=== PATIENT | male | born 1970 | race Caucasian/White ===

== ENCOUNTER 2022-05-08 08:01 | Outpatient (REF) | payer OTHER, SELFPAY ==
[2022-05-08 11:29] LABS: MANUAL DIFF FLAG NO
[2022-05-08 11:43] LABS: Basophils Absolute Auto 0.1 X10*3/uL (0.0-0.2); Basophils Percent Auto 0.9 % (0-2); Eosinophils Absolute Auto 0.4 X10*3/uL (0.0-0.4); Eosinophils Percent Auto 4.6 % (0-4); Hematocrit 43.6 % (42.0-52.0); Hemoglobin 15.1 g/dl (14.0-18.0); Imm Gran Abs Auto 0.03 X10*3/uL (0.00-0.03); Imm Gran Pct Auto 0.4 % (0.0-0.4); Lymphocytes Absolute Auto 2.1 X10*3/uL (1.2-4.9); Lymphocytes Percent Auto 26.5 % (20-40); Mean Corpuscular HGB Conc 34.6 g/dl (31.0-36.0); Mean Corpuscular Hemoglobin 30.1 pg (27.0-33.0); Mean Corpuscular Volume 86.9 fL (80.0-98.0); Mean Platelet Volume 10.6 fL (9.4-12.4); Monocytes Absolute Auto 0.5 X10*3/uL (0.1-1.2); Monocytes Percent Auto 5.8 % (2-11); Neutrophils Absolute Auto 4.9 x10*3/uL (2.0-8.3); Neutrophils Percent Auto 61.8 % (45-73); Platelet Count 335 X10*3/uL (160-400); Red Blood Count 5.02 X10*6/uL (4.60-5.80); White Blood Count 7.9 X10*3/uL (4.8-10.8)
[2022-05-08 12:04] LABS: Alanine Aminotransferase 20 U/L (0-40); Albumin Level 4.3 g/dL (3.5-5.0); Alkaline Phosphatase 75 U/L (39-117); Anion Gap 15 (12-20); Aspartate Amino Transferase 16 U/L (5-37); Bilirubin Total 0.8 mg/dL (0.0-1.0); Blood Urea Nitrogen 12 mg/dL (9-16); Calcium 9.2 mg/dL (8.4-10.2); Carbon Dioxide 26 mmol/L (22-29); Chloride 104 mmol/L (96-108); Cholesterol 181 mg/dL; Estimated Glomerular Filt Rate > 60; Glucose Fasting 97 mg/dL (60-99); HDL Cholesterol 44 mg/dL; LDL Cholesterol Calculated 120 mg/dl; Potassium 4.1 mmol/L (3.3-5.1); Sodium 141 mmol/L (135-145); Total Protein 6.6 g/dL (6.5-8.0); Triglycerides 89 mg/dL
[2022-05-08 12:28] LABS: PSA,Total (Free>4and<10) 0.22 ng/mL (0.00-4.00)
[2022-05-08 12:41] LABS: Appearance Urine Clear; Color Urine Yellow; Glucose Urine UA Negative (Negative); Leukocyte Esterase Urine Negative (Negative); Nitrite Urine Negative (Negative); PH 5.5 (5.0-9.0); Specific Gravity - Urine 1.025 (1.005-1.025); UMIC TRIGGER UA YES; Urine Blood Moderate (2+) (Negative); Urine Ketones Negative (Negative); Urine Protein Negative (Neg-Trace)
[2022-05-08 13:03] LABS: RBC Urine 0-2 /HPF (0-2); Squamous Epithelial Cell Urine 0-2 /HPF (0-2); WBC Urine 0-5 /HPF (0-5)
[2022-05-08 13:04] LABS: Bacteria Urine None Seen (None Seen); Hyaline Casts Urine 0-2 /LPF (0-2)
== END 2022-05-08 08:02 | disposition home or self-care (01) ==
LOC: HO.HMGCLDS 08:01
PROVIDERS: PCP Internal Medicine; Visit Provider Internal Medicine
DX: Z00.00 Encounter for general adult medical examination without abnormal findings (principal); I10 Essential (primary) hypertension; G47.30 Sleep apnea, unspecified; Z98.890 Other specified postprocedural states; Z12.5 Encounter for screening for malignant neoplasm of prostate
CPT/HCPCS: 36415; 80053; 80061; 81001; 84153; 85025

== ENCOUNTER 2023-09-19 13:54 | Outpatient (AMB) | payer OTHER, SELFPAY ==
--- NOTE | 2023-09-19 13:59 | MHC.PC.OV ---
Vital Signs 09/19/23 14:02 Height 5 ft 4 in Weight 186 lb BMI 31.9 BP 126/82 Blood Pressure Location Lt brachial Position Sitting Pulse 68 Pulse Source Pulse Oximeter Pulse Oximetry (%) 98 Oxygen Delivery Method Room Air Intake Visit Reasons: Med review Intake Note: Pt is here today for a follow up visit. Allergies iodine Allergy (Unknown, Verified 09/19/23 14:03) anaphylaxis Iodine and Iodide Containing Produc [IODINE AND IODIDE CONTAINING PRODUC] Allergy (Unknown, Unverified 09/19/23 14:03) ANAPHYLAXIS omeprazole [OMEPRAZOLE] Allergy (Unknown, Unverified 09/19/23 14:03) ITCHING Iodine Tincture Allergy (Unknown, Uncoded 09/19/23 14:03) Anaphylaxis Medication List - Last Reconciled 09/19/23 by Belinda Guidry MD esomeprazole magnesium (Nexium) 20 mg PO DAILY olmesartan 5 mg PO DAILY Tobacco use date assessed: 09/19/23 Dental Screening Dental Screen Date: 09/19/23 Did you have a dental visit in the last 12 months?: Yes Did you have a dental problem in the last 6 months where you did not have access to dental care?: No Was dental information given to patient?: Patient has dentist HPI Med review HPI Details Pt presents for f/u HTN. He has not been compliant taking olmesartan every day. Patient reports elevated blood pressure at home on occasions. He denies chest pain shortness on breath or palpitations. 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 1. Little interest or pleasure in doing things: not at all 2. Feeling down, depressed, or hopeless: not at all 3. Trouble falling or staying asleep, or sleeping too much: several days 4. Feeling tired or having little energy: not at all 5. Poor appetite or overeating: not at all 6. Feeling bad about yourself - or that you are a failure or have let yourself or your family down: not at all 7. Trouble concentrating on things, such as reading the newspaper or watching television: not at all 8. Moving or speaking so slowly that other people could have noticed. Or the opposite - being so fidgety or restless that you have been moving around a lot more than usual: not at all 9. Thoughts that you would be better off or of hurting yourself in some way: not at all Total score: 1 Depression Screening Interpretation: Negative Depression Screening Done: Yes Source: Developed by Drs. Sukh Pacheco, Kenna Garcia, Pastor Marshall and colleagues, with an educational lance from [employer]. Thrive Questionnaire Date Thrive assessed: 09/19/23 I am a: Patient What is your living situation today?: I have a steady place to live Within the past 12 months, did the food you bought not last and you didn't have the money to get more?: Never true Within the past 12 months, did you worry whether your food would run out before you got money to buy more?: Never true Do you have trouble paying for medicines?: No Do you have trouble getting transportation to medical appointments?: No Do you have trouble paying your heating and electricity bill?: No Do you have trouble taking care of your child, family member or friend?: No Do you have trouble with day-to-day activities such as bathing, preparing meals, shopping, managing finances, etc.?: No Are you currently unemployed and looking for a job?: No Are you interested in more education?: No Please select the resources that you would like help with: None Currently or been in a relationship where the following occur: no concerns reported THRIVE Score: 0 AUDIT C Alcohol Use Questionnaire (AUDIT-C) 1. How often do you have a drink containing alcohol?: Never 3. How often do you have six or more drinks on one occasion?: Never Total Score: 0 MIKHAIL-7 AMB Questionnaire MIKHAIL-7 Date MIKHAIL - 7 assessed: 09/19/23 Feeling nervous, anxious, or on edge: 0 = Not at all Not being able to stop or control worryin = Not at all Worrying too much about different things: 0 = Not at all Trouble relaxin = Not at all Being so restless that it is hard to sit still: 0 = Not at all Becoming easily annoyed or irritable: 0 = Not at all Feeling afraid as if something awful might happen: 0 = Not at all Total MIKHAIL-7 score (0-4 normal; 5-9 mild; 10-14 moderate; 15-21 severe): 0 Source: Developed by Drs. Sukh Pacheco, Kenna Garcia, Pastor Marshall and colleagues, with an educational lance from [employer]. Review of Systems Const All systems reviewed & are unremarkable except as noted in HPI and below Reports no additional complaints Eyes Reports no additional complaints ENT Reports no additional complaints Card Reports no additional complaints GI Reports no additional complaints Reports no additional complaints Physical exam (Primary Care) Vital Signs: Last Vital Signs Pulse 68 09/19/23 14:02 BP 126/82 09/19/23 14:02 Pulse Ox 98 09/19/23 14:02 Oxygen Delivery Method Room Air 09/19/23 14:02 BMI result Body Mass Index 31.9 Tobacco/Smoking Status: Tobacco use Status Tobacco use date assessed 09/19/23 09/19/23 14:06 Patient Tobacco Use Status Never used Tobacco 09/19/23 14:06 e-Cigarette/Vaping Use Never Used 09/19/23 14:00 PHQ-9: PHQ-9 Score PHQ-9: Total score 1 09/19/23 14:06 Depression Screening Interpretation: Negative Thrive Assessment: Date of Thrive Assessment Date Thrive assessed 09/19/23 09/19/23 14:06 Currently or been in a relationship where the following occur: no concerns reported Const General: no acute distress HENMT Throat: Yes posterior oropharynx normal Neck Neck: Yes no lymphadenopathy and Yes supple Resp Effort & Inspection: normal respiratory effort Auscultation: clear to auscultation bilaterally Cardio Rhythm: regular rhythm Heart sounds: S1 normal heart sound present and S2 normal heart sound present Assessment and Plan Assessment & Plan (1) HTN (hypertension): Code(s): I10 - Essential (primary) hypertension Plan: Patient will restart olmesartan, low-sodium diet regular physical activity weight loss discussed with the patient. he will return for fasting blood work. Follow-up in 6 weeks (2) Annual physical exam: Code(s): Z00.00 - Encounter for general adult medical examination without abnormal findings Plan: Refer for screening colonoscopy Orders: Orders Complete Blood Count Auto Diff Today I10 - Essential (primary) hypertension, Z00.00 - Encounter for general adult medical examination without abnormal findings TSH reflex Free T4 Today I10 - Essential (primary) hypertension, Z00.00 - Encounter for general adult medical examination without abnormal findings UA w Microscopic Today I10 - Essential (primary) hypertension, Z00.00 - Encounter for general adult medical examination without abnormal findings Comprehensive [place]. Panel Fast Today I10 - Essential (primary) hypertension, Z00.00 - Encounter for general adult medical examination without abnormal findings Lipid Panel Today I10 - Essential (primary) hypertension, Z00.00 - Encounter for general adult medical examination without abnormal findings PSA,Total (Free>4and<10) Today I10 - Essential (primary) hypertension, Z00.00 - Encounter for general adult medical examination without abnormal findings Referrals Gastroenterology Referral Z00.00 - Encounter for general adult medical examination without abnormal findings Medications: Refilled olmesartan 5 mg PO DAILY 90 tabs 3RF Coding Level of Care Code Est Pt Level 3 (25477) Diagnoses HTN (hypertension) I10 Annual physical exam Z00.00
[2023-09-19 14:02] VITALS: BP 126/82; PULSE 68; O2SAT 98; BMI 31.9
== END 2023-09-19 14:34 | disposition home or self-care (01) ==
PROVIDERS: PCP Internal Medicine; Visit Provider Internal Medicine
DX: I10 Essential (primary) hypertension (principal); Z00.00 Encounter for general adult medical examination without abnormal findings
CPT/HCPCS: 99213

== ENCOUNTER 2023-11-20 07:17 | Outpatient (REF) | payer OTHER, SELFPAY ==
[2023-11-20 10:22] LABS: MANUAL DIFF FLAG NO
[2023-11-20 10:33] LABS: Appearance Urine Clear; Color Urine Yellow; Glucose Urine UA Negative (Negative); Leukocyte Esterase Urine Negative (Negative); Nitrite Urine Negative (Negative); PH 5.5 (5.0-9.0); UMIC TRIGGER UA YES; Urine Blood Small (1+) (Negative); Urine Ketones Negative (Negative); Urine Protein Negative (Neg-Trace)
[2023-11-20 10:34] LABS: Basophils Absolute Auto 0.1 X10*3/uL (0.0-0.2); Basophils Percent Auto 0.9 % (0-2); Eosinophils Absolute Auto 0.4 X10*3/uL (0.0-0.4); Eosinophils Percent Auto 4.8 % (0-4); Hemoglobin 15.2 g/dl (14.0-18.0); Imm Gran Abs Auto 0.02 X10*3/uL (0.00-0.03); Imm Gran Pct Auto 0.2 % (0.0-0.4); Lymphocytes Absolute Auto 2.5 X10*3/uL (1.2-4.9); Lymphocytes Percent Auto 29.4 % (20-40); Mean Corpuscular HGB Conc 34.5 g/dl (31.0-36.0); Mean Corpuscular Hemoglobin 30.2 pg (27.0-33.0); Mean Corpuscular Volume 87.5 fL (80.0-98.0); Mean Platelet Volume 10.5 fL (9.4-12.4); Monocytes Absolute Auto 0.6 X10*3/uL (0.1-1.2); Neutrophils Absolute Auto 4.9 x10*3/uL (2.0-8.3); Neutrophils Percent Auto 57.7 % (45-73); Platelet Count 318 X10*3/uL (160-400); Red Blood Count 5.03 X10*6/uL (4.60-5.80); Red Cell Distribution Width 12.8 % (11.0-16.0); White Blood Count 8.5 X10*3/uL (4.8-10.8)
[2023-11-20 10:57] LABS: Bacteria Urine None Seen (None Seen); Hyaline Casts Urine 0-2 /LPF (0-2); RBC Urine 0-2 /HPF (0-2); Squamous Epithelial Cell Urine 0-2 /HPF (0-2); WBC Urine 0-5 /HPF (0-5)
[2023-11-20 11:00] LABS: Alanine Aminotransferase 36 U/L (0-40); Albumin Level 4.1 g/dL (3.5-5.0); Alkaline Phosphatase 77 U/L (39-117); Anion Gap 11 (12-20); Aspartate Amino Transferase 22 U/L (5-37); Bilirubin Total 0.7 mg/dL (0.0-1.0); Blood Urea Nitrogen 12 mg/dL (9-16); Calcium 8.9 mg/dL (8.4-10.2); Carbon Dioxide 27 mmol/L (22-29); Chloride 107 mmol/L (96-108); Cholesterol 187 mg/dL (<200); Estimated Glomerular Filt Rate > 60; Glucose Fasting 99 mg/dL (60-99); HDL Cholesterol 41 mg/dL (>40); LDL Cholesterol Calculated 125 mg/dL (<100); Sodium 141 mmol/L (135-145); Total Protein 6.5 g/dL (6.5-8.0); Triglycerides 108 mg/dL (<150)
[2023-11-20 11:02] LABS: PSA,Total (Free>4and<10) 0.27 ng/mL (0.00-4.00)
[2023-11-20 11:16] LABS: TSH reflex Free T4 1.37 uIU/mL (0.32-4.0)
== END 2023-11-20 07:18 | disposition home or self-care (01) ==
LOC: HO.HMGCLDS 07:17
PROVIDERS: PCP Internal Medicine; Visit Provider Internal Medicine
DX: Z00.00 Encounter for general adult medical examination without abnormal findings (principal); Z12.5 Encounter for screening for malignant neoplasm of prostate; I10 Essential (primary) hypertension
CPT/HCPCS: 36415; 80053; 80061; 81001; 84153; 84443; 85025

== ENCOUNTER 2023-11-22 10:57 | Outpatient (AMB) | payer OTHER, SELFPAY ==
--- NOTE | 2023-11-22 11:02 | MHC.PC.OV ---
Vital Signs 11/22/23 11:03 Height 5 ft 4 in Weight 187 lb BMI 32.1 BP 139/88 Blood Pressure Location Rt brachial Position Sitting Pulse 68 Pulse Source Pulse Oximeter Pulse Oximetry (%) 98 Oxygen Delivery Method Room Air Intake Visit Reasons: 6 week follow up-R/S per patient request Intake Note: Pt is here today for 6 weeks follow up visit. Allergies iodine Allergy (Unknown, Verified 11/22/23 11:04) anaphylaxis Iodine and Iodide Containing Produc [IODINE AND IODIDE CONTAINING PRODUC] Allergy (Unknown, Unverified 11/22/23 11:04) ANAPHYLAXIS omeprazole [OMEPRAZOLE] Allergy (Unknown, Verified 11/22/23 11:04) ITCHING Iodine Tincture Allergy (Unknown, Uncoded 11/22/23 11:04) Anaphylaxis Medication List - Last Reconciled 11/22/23 by Belinda Guidry MD esomeprazole magnesium (Nexium) 20 mg PO DAILY olmesartan 5 mg PO DAILY Tobacco use date assessed: 11/22/23 Dental Screening Dental Screen Date: 09/19/23 HPI 6 week follow up-R/S per patient request HPI Details Pt presents for f/u HTN. 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 Sukh Pacheco, Kenna Garcia, Pastor Marshall and colleagues, with an educational lance from [employer] Review of Systems Const All systems reviewed & are unremarkable except as noted in HPI and below ENT Reports no additional complaints Card Reports no additional complaints Resp Reports no additional complaints Reports no additional complaints Physical exam (Primary Care) Vital Signs: Last Vital Signs Pulse 68 11/22/23 11:03 Pulse Ox 98 11/22/23 11:03 Oxygen Delivery Method Room Air 11/22/23 11:03 BMI result Body Mass Index 32.1 Tobacco/Smoking Status: Tobacco use Status Tobacco use date assessed 11/22/23 11/22/23 11:07 Patient Tobacco Use Status Never used Tobacco 11/22/23 11:07 e-Cigarette/Vaping Use Never Used 11/22/23 11:07 Thrive Assessment: Date of Thrive Assessment Date Thrive assessed 09/19/23 11/22/23 11:07 Const General: no acute distress HENMT Head: Yes normal to inspection Ears: hearing grossly normal bilaterally Face and sinus: Yes normal facial exam Neck Neck: Yes supple Resp Effort & Inspection: normal respiratory effort Auscultation: clear to auscultation bilaterally Cardio Rhythm: regular rhythm Heart sounds: S1 normal heart sound present and S2 normal heart sound present GI Inspection: Yes normal to inspection Palpation (GI): Soft to palpation Assessment and Plan Assessment & Plan (1) HTN (hypertension): Code(s): I10 - Essential (primary) hypertension Plan: Increase olmesartan to 20 mg a day check BMP in 1 week continue regular physical activity low-sodium diet follow-up in 6 weeks (2) Sleep apnea: Comment: on Cpap Code(s): G47.30 - Sleep apnea, unspecified Plan: Compliance with the CPAP discussed with the patient Orders: Orders Basic Metabolic Panel 1 Week I10 - Essential (primary) hypertension Medications: New olmesartan 20 mg PO DAILY 90 tabs 0RF Discontinued olmesartan Discontinued Reason: Doctor's Order 5 mg PO DAILY 90 tabs 3RF Coding Level of Care Code Est Pt Level 3 (60812) Diagnoses HTN (hypertension) I10 Sleep apnea G47.30
[2023-11-22 11:03] VITALS: BP 139/88; PULSE 68; O2SAT 98; BMI 32.1
== END 2023-11-22 11:27 | disposition home or self-care (01) ==
PROVIDERS: PCP Internal Medicine; Visit Provider Internal Medicine
DX: I10 Essential (primary) hypertension (principal); G47.30 Sleep apnea, unspecified
CPT/HCPCS: 99213

== ENCOUNTER 2024-01-04 10:48 | Outpatient (AMB) | payer OTHER, SELFPAY ==
--- NOTE | 2024-01-04 10:53 | MHC.PC.OV ---
Vital Signs 01/04/24 10:54 Height 5 ft 4 in Weight 185 lb BMI 31.8 BP 139/88 Blood Pressure Location Rt brachial Position Sitting Pulse 77 Pulse Source Pulse Oximeter Pulse Oximetry (%) 95 Oxygen Delivery Method Room Air Intake Visit Reasons: 6 week follow up/med change Intake Note: Pt is here today for a follow up visit on med change. Allergies iodine Allergy (Unknown, Verified 01/04/24 11:02) anaphylaxis Iodine and Iodide Containing Produc [IODINE AND IODIDE CONTAINING PRODUC] Allergy (Unknown, Unverified 01/04/24 11:02) ANAPHYLAXIS omeprazole [OMEPRAZOLE] Allergy (Unknown, Verified 01/04/24 11:02) ITCHING Iodine Tincture Allergy (Unknown, Uncoded 01/04/24 11:02) Anaphylaxis Medication List - Last Reconciled 01/04/24 by Belinda Guidry MD amlodipine-olmesartan 5-20 mg 1 tab PO DAILY esomeprazole magnesium (Nexium) 20 mg PO DAILY Tobacco use date assessed: 01/04/24 Dental Screening Dental Screen Date: 09/19/23 HPI 6 week follow up/med change HPI Details Patient presents for the follow-up on hypertension. He has been taking olmesartan 20 mg a day but reports blood pressure readings at home in 140/90 range. Patient denies chest pain or shortness of breath. 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 Sukh Pacheco, Kenna Garcia, Pastor Marshall and colleagues, with an educational lance from [employer]. Review of Systems Const All systems reviewed & are unremarkable except as noted in HPI and below Eyes Reports no additional complaints Card Reports no additional complaints Resp Reports no additional complaints GI Reports no additional complaints Physical exam (Primary Care) Vital Signs: Last Vital Signs Pulse 77 01/04/24 10:54 Pulse Ox 95 01/04/24 10:54 Oxygen Delivery Method Room Air 01/04/24 10:54 BMI result Body Mass Index 31.8 Tobacco/Smoking Status: Tobacco use Status Tobacco use date assessed 01/04/24 01/04/24 11:05 Patient Tobacco Use Status Never used Tobacco 01/04/24 10:54 e-Cigarette/Vaping Use Never Used 01/04/24 10:54 Thrive Assessment: Date of Thrive Assessment Date Thrive assessed 09/19/23 01/04/24 10:54 Const General: no acute distress HENMT Face and sinus: Yes normal facial exam Eyes General: appearance normal, both eyes and all related structures Resp Effort & Inspection: normal respiratory effort Auscultation: clear to auscultation bilaterally Cardio Rhythm: regular rhythm Heart sounds: S1 normal heart sound present and S2 normal heart sound present Assessment and Plan Assessment & Plan (1) HTN (hypertension): Code(s): I10 - Essential (primary) hypertension Plan: Change olmesartan to amlodipine with olmesartan 5/20, low-sodium diet regular physical activity discussed with the patient follow-up in 1 month Medications: New amlodipine-olmesartan 5-20 mg 1 tab PO DAILY 30 tabs 2RF Coding Level of Care Code Est Pt Level 3 (49349) Diagnoses HTN (hypertension) I10
[2024-01-04 10:54] VITALS: BP 139/88; PULSE 77; O2SAT 95; BMI 31.8
== END 2024-01-04 11:51 | disposition home or self-care (01) ==
PROVIDERS: PCP Internal Medicine; Visit Provider Internal Medicine
DX: I10 Essential (primary) hypertension (principal)
CPT/HCPCS: 99213

== ENCOUNTER 2024-02-28 10:02 | Outpatient (AMB) | payer OTHER, SELFPAY ==
--- NOTE | 2024-02-28 10:07 | A.OFFPC_ITS ---
Vital Signs 02/28/24 10:20 Height 5 ft 4 in Weight 183 lb BMI 31.4 BP 130/86 Blood Pressure Location Lt brachial Position Sitting Pulse 78 Pulse Source Pulse Oximeter Pulse Oximetry (%) 95 Oxygen Delivery Method Room Air Intake Visit Reasons: 1-2 month follow up Allergies iodine Allergy (Unknown, Verified 02/28/24 10:21) anaphylaxis Iodine and Iodide Containing Produc [IODINE AND IODIDE CONTAINING PRODUC] Allergy (Unknown, Unverified 02/28/24 10:21) ANAPHYLAXIS omeprazole [OMEPRAZOLE] Allergy (Unknown, Verified 02/28/24 10:21) ITCHING Iodine Tincture Allergy (Unknown, Uncoded 02/28/24 10:21) Anaphylaxis Medication List - Last Reconciled 02/28/24 by Belinda Guidry MD amlodipine-olmesartan 5-20 mg 1 tab PO DAILY esomeprazole magnesium (Nexium) 20 mg PO DAILY Tobacco use date assessed: 01/04/24 Dental Screening Dental Screen Date: 09/19/23 HPI 1-2 month follow up HPI Details Patient presents for the follow-up on hypertension better controlled on current medications. 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 1. Little interest or pleasure in doing things: not at all 2. Feeling down, depressed, or hopeless: not at all 3. Trouble falling or staying asleep, or sleeping too much: not at all 4. Feeling tired or having little energy: not at all 5. Poor appetite or overeating: not at all 6. Feeling bad about yourself - or that you are a failure or have let yourself or your family down: not at all 7. Trouble concentrating on things, such as reading the newspaper or watching television: not at all 8. Moving or speaking so slowly that other people could have noticed. Or the opposite - being so fidgety or restless that you have been moving around a lot more than usual: not at all 9. Thoughts that you would be better off or of hurting yourself in some way: not at all Total score: 0 Depression Screening Interpretation: Negative Depression Screening Done: Yes 75332 - PHQ-9 Billing: Yes Source: Developed by Drs. Sukh Pacheco, Kenna Garcia, Pastor Marshall and colleagues, with an educational lance from [employer]. Thrive Questionnaire Date Thrive assessed: 09/19/23 I am a: Patient What is your living situation today?: I have a steady place to live Within the past 12 months, did the food you bought not last and you didn't have the money to get more?: Never true Within the past 12 months, did you worry whether your food would run out before you got money to buy more?: Never true Do you have trouble paying for medicines?: No Do you have trouble getting transportation to medical appointments?: No Do you have trouble paying your heating and electricity bill?: No Do you have trouble taking care of your child, family member or friend?: No Do you have trouble with day-to-day activities such as bathing, preparing meals, shopping, managing finances, etc.?: No Are you currently unemployed and looking for a job?: No Are you interested in more education?: No Please select the resources that you would like help with: None Currently or been in a relationship where the following occur: No concerns reported THRIVE Score: 0 AUDIT C Alcohol Use Questionnaire (AUDIT-C) 1. How often do you have a drink containing alcohol?: Monthly or less 2. How many drinks containing alcohol do you have on a typical day when you are drinking?: 3 or 4 3. How often do you have six or more drinks on one occasion?: Never Total Score: 2 MIKHAIL-7 AMB Questionnaire MIKHAIL-7 Date MIKHAIL - 7 assessed: 02/28/24 Feeling nervous, anxious, or on edge: 0 = Not at all Not being able to stop or control worryin = Not at all Worrying too much about different things: 0 = Not at all Trouble relaxin = Not at all Being so restless that it is hard to sit still: 0 = Not at all Becoming easily annoyed or irritable: 0 = Not at all Feeling afraid as if something awful might happen: 0 = Not at all Total MIKHAIL-7 score (0-4 normal; 5-9 mild; 10-14 moderate; 15-21 severe): 0 Source: Developed by Drs. Sukh Pacheco, Kenna Garcia, Pastor Marshall and colleagues, with an educational lance from [employer]. Review of Systems Const All systems reviewed & are unremarkable except as noted in HPI and below Card Reports no additional complaints Resp Reports no additional complaints GI Reports no additional complaints Reports no additional complaints Physical exam (Primary Care) Vital Signs: Last Vital Signs Pulse 78 02/28/24 10:20 BP 130/86 02/28/24 10:20 Pulse Ox 95 02/28/24 10:20 Oxygen Delivery Method Room Air 02/28/24 10:20 BMI result Body Mass Index 31.4 Tobacco/Smoking Status: Tobacco use Status Tobacco use date assessed 01/04/24 02/28/24 10:08 Patient Tobacco Use Status Never used Tobacco 02/28/24 10:08 e-Cigarette/Vaping Use Never Used 02/28/24 10:08 PHQ-9: PHQ-9 Score PHQ-9: Total score 0 02/28/24 10:24 Depression Screening Interpretation: Negative Thrive Assessment: Date of Thrive Assessment Date Thrive assessed 09/19/23 02/28/24 10:08 Currently or been in a relationship where the following occur: No concerns reported Const General: no acute distress HENMT Face and sinus: Yes normal facial exam Neck Neck: Yes supple Resp Effort & Inspection: normal respiratory effort Auscultation: clear to auscultation bilaterally Cardio Rhythm: regular rhythm Heart sounds: S1 normal heart sound present and S2 normal heart sound present GI Inspection: Yes normal to inspection Assessment and Plan Assessment & Plan (1) HTN (hypertension): Code(s): I10 - Essential (primary) hypertension Plan: Continue current medications follow-up in 2 months Orders: Orders Comprehensive [place]. Panel Fast 2 Months I10 - Essential (primary) hypertension Medications: Refilled amlodipine-olmesartan 5-20 mg 1 tab PO DAILY 90 tabs 2RF Coding Level of Care Code Est Pt Level 3 (36403) Diagnoses HTN (hypertension) I10
[2024-02-28 10:20] VITALS: BP 130/86; PULSE 78; O2SAT 95; BMI 31.4
== END 2024-02-28 10:49 | disposition home or self-care (01) ==
PROVIDERS: PCP Internal Medicine; Visit Provider Internal Medicine
DX: I10 Essential (primary) hypertension (principal)
CPT/HCPCS: 99213

== ENCOUNTER 2024-05-12 11:15 | Outpatient (AMB) | payer OTHER, SELFPAY ==
--- NOTE | 2024-05-12 11:17 | A.OFFPC_ITS ---
Vital Signs 05/12/24 11:18 Height 5 ft 4 in Weight 180 lb BMI 30.9 BP 124/78 Blood Pressure Location Lt brachial Position Sitting Pulse 70 Pulse Source Pulse Oximeter Pulse Oximetry (%) 98 Oxygen Delivery Method Room Air Intake Visit Reasons: PE Intake Note: Pt is here today for PE. Allergies iodine Allergy (Unknown, Verified 05/12/24 11:19) anaphylaxis Iodine and Iodide Containing Produc [IODINE AND IODIDE CONTAINING PRODUC] Allergy (Unknown, Unverified 05/12/24 11:19) ANAPHYLAXIS omeprazole [OMEPRAZOLE] Allergy (Unknown, Verified 05/12/24 11:19) ITCHING Iodine Tincture Allergy (Unknown, Uncoded 05/12/24 11:19) Anaphylaxis Medication List - Last Reconciled 05/12/24 by Belinda Guidry MD amlodipine-olmesartan 5-20 mg 1 tab PO DAILY esomeprazole magnesium (Nexium) 20 mg PO DAILY Tobacco use date assessed: 05/12/24 Dental Screening Dental Screen Date: 09/19/23 HPI PE HPI Details Patient presents for PE PFSH Surgical History History of knee surgery Family History Father Kidney problem Mother Dissection, aorta Hypertension Maternal Grandmother Stroke 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:: , 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 Housing: House Patient Tobacco Use Status: Never used Tobacco e-Cigarette/Vaping Use: Never Used service: Yes Current occupational status: employed Cognitive needs: No Hearing needs: No Vision needs: No Questionnaire Thrive Questionnaire Date Thrive assessed: 02/28/24 I am a: Patient What is your living situation today?: I have a steady place to live Within the past 12 months, did the food you bought not last and you didn't have the money to get more?: Never true Within the past 12 months, did you worry whether your food would run out before you got money to buy more?: Never true Do you have trouble paying for medicines?: No Do you have trouble getting transportation to medical appointments?: No Do you have trouble paying your heating and electricity bill?: No Do you have trouble taking care of your child, family member or friend?: No Do you have trouble with day-to-day activities such as bathing, preparing meals, shopping, managing finances, etc.?: No Are you currently unemployed and looking for a job?: No Are you interested in more education?: No Please select the resources that you would like help with: None Currently or been in a relationship where the following occur: No concerns reported THRIVE Score: 0 MIKHAIL-7 AMB Questionnaire MIKHAIL-7 Date MIKHAIL - 7 assessed: 02/28/24 Source: Developed by Drs. Sukh Pacheco, Kenna Garcia, Pastor Marshall and colleagues, with an educational lance from [employer]. Review of Systems Const All systems reviewed & are unremarkable except as noted in HPI and below Reports no additional complaints Eyes Reports no additional complaints ENT Reports no additional complaints Card Reports no additional complaints Resp Reports no additional complaints GI Reports no additional complaints Reports no additional complaints Physical exam (Primary Care) Vital Signs: Last Vital Signs Pulse 70 05/12/24 11:18 BP 124/78 05/12/24 11:18 Pulse Ox 98 05/12/24 11:18 Oxygen Delivery Method Room Air 05/12/24 11:18 BMI result Body Mass Index 30.9 Tobacco/Smoking Status: Tobacco use Status Tobacco use date assessed 05/12/24 05/12/24 11:22 Patient Tobacco Use Status Never used Tobacco 05/12/24 11:22 e-Cigarette/Vaping Use Never Used 05/12/24 11:22 Thrive Assessment: Date of Thrive Assessment Date Thrive assessed 02/28/24 05/12/24 11:22 Currently or been in a relationship where the following occur: No concerns reported Const General: no acute distress HENMT Head: Yes normal to inspection Ears: hearing grossly normal bilaterally Face and sinus: Yes normal facial exam Throat: Yes posterior oropharynx normal Eyes General: appearance normal, both eyes and all related structures Neck Neck: Yes no lymphadenopathy and Yes supple Resp Effort & Inspection: normal respiratory effort Auscultation: clear to auscultation bilaterally Cardio Rhythm: regular rhythm Heart sounds: S1 normal heart sound present and S2 normal heart sound present GI Inspection: Yes normal to inspection Palpation (GI): Soft to palpation Percussion: Yes normal to percussion Auscultation: normal bowel sounds Coding Level of Care Code Est Pt Prev Care 40-64y(57487) Diagnoses Annual physical exam Z00.00 HTN (hypertension) I10 Hx of colonoscopy Z98.890 Assessment & Plan Assessment & Plan (1) Annual physical exam: Code(s): Z00.00 - Encounter for general adult medical examination without abnormal findings Category: Medical Plan: Well-balanced diet regular physical activity discussed with the patient. (2) HTN (hypertension): Code(s): I10 - Essential (primary) hypertension Category: Medical Plan: Continue current medications follow-up in 6 months (3) Hx of colonoscopy: Comment: 08/2018 negative Code(s): Z98.890 - Other specified postprocedural states Category: Surgical Plan: Follow-up with GI Orders: Orders Comprehensive [place]. Panel Fast Today I10 - Essential (primary) hypertension, Z00.00 - Encounter for general adult medical examination without abnormal findings Lipid Panel Today I10 - Essential (primary) hypertension, Z00.00 - Encounter for general adult medical examination without abnormal findings PSA,Total (Free>4and<10) Today I10 - Essential (primary) hypertension, Z00.00 - Encounter for general adult medical examination without abnormal findings Complete Blood Count Auto Diff Today I10 - Essential (primary) hypertension, Z00.00 - Encounter for general adult medical examination without abnormal findings UA w Microscopic Today I10 - Essential (primary) hypertension, Z00.00 - Encounter for general adult medical examination without abnormal findings Medications: Refilled amlodipine-olmesartan 5-20 mg 1 tab PO DAILY 90 tabs 3RF
[2024-05-12 11:18] VITALS: BP 124/78; PULSE 70; O2SAT 98; BMI 30.9
== END 2024-05-12 11:56 | disposition home or self-care (01) ==
PROVIDERS: PCP Internal Medicine; Visit Provider Internal Medicine
DX: Z00.00 Encounter for general adult medical examination without abnormal findings (principal); I10 Essential (primary) hypertension; Z98.890 Other specified postprocedural states

== ENCOUNTER 2024-05-16 07:52 | Outpatient (REF) | payer OTHER, SELFPAY ==
[2024-05-16 10:11] LABS: MANUAL DIFF FLAG NO
[2024-05-16 10:16] LABS: Appearance Urine Clear; Color Urine Yellow; Glucose Urine UA Negative (Negative); Leukocyte Esterase Urine Negative (Negative); Nitrite Urine Negative (Negative); Specific Gravity - Urine 1.015 (1.005-1.025); UMIC TRIGGER UA YES; Urine Blood Small (1+) (Negative); Urine Ketones Negative (Negative); Urine Protein Negative (Neg-Trace)
[2024-05-16 10:21] LABS: Basophils Absolute Auto 0.1 X10*3/uL (0.0-0.2); Basophils Percent Auto 0.8 % (0-2); Eosinophils Absolute Auto 0.4 X10*3/uL (0.0-0.4); Eosinophils Percent Auto 4.7 % (0-4); Hematocrit 44.3 % (42.0-52.0); Hemoglobin 15.6 g/dl (14.0-18.0); Imm Gran Abs Auto 0.02 X10*3/uL (0.00-0.03); Imm Gran Pct Auto 0.3 % (0.0-0.4); Lymphocytes Absolute Auto 2.1 X10*3/uL (1.2-4.9); Mean Corpuscular HGB Conc 35.2 g/dl (31.0-36.0); Mean Corpuscular Hemoglobin 30.4 pg (27.0-33.0); Mean Corpuscular Volume 86.2 fL (80.0-98.0); Mean Platelet Volume 10.2 fL (9.4-12.4); Monocytes Absolute Auto 0.4 X10*3/uL (0.1-1.2); Neutrophils Absolute Auto 4.5 x10*3/uL (2.0-8.3); Neutrophils Percent Auto 60.2 % (45-73); Platelet Count 312 X10*3/uL (160-400); Red Blood Count 5.14 X10*6/uL (4.60-5.80); Red Cell Distribution Width 12.5 % (11.0-16.0); White Blood Count 7.4 X10*3/uL (4.8-10.8)
[2024-05-16 10:31] LABS: Bacteria Urine None Seen (None Seen); Hyaline Casts Urine 0-2 /LPF (0-2); RBC Urine 0-2 /HPF (0-2); Squamous Epithelial Cell Urine 0-2 /HPF (0-2); WBC Urine 0-5 /HPF (0-5)
[2024-05-16 10:46] LABS: Alanine Aminotransferase 27 U/L (0-40); Albumin Level 4.2 g/dL (3.5-5.0); Alkaline Phosphatase 76 U/L (39-117); Anion Gap 10 (12-20); Aspartate Amino Transferase 23 U/L (5-37); Bilirubin Total 0.8 mg/dL (0.0-1.0); Blood Urea Nitrogen 8 mg/dL (9-16); Calcium 9.1 mg/dL (8.4-10.2); Carbon Dioxide 30 mmol/L (22-29); Chloride 104 mmol/L (96-108); Cholesterol 169 mg/dL (<200); Estimated Glomerular Filt Rate > 60; Glucose Fasting 97 mg/dL (60-99); HDL Cholesterol 35 mg/dL (>40); LDL Cholesterol Calculated 108 mg/dL (<100); Potassium 3.6 mmol/L (3.3-5.1); Sodium 140 mmol/L (135-145); Total Protein 6.7 g/dL (6.5-8.0); Triglycerides 130 mg/dL (<150)
[2024-05-16 10:59] LABS: PSA,Total (Free>4and<10) 0.35 ng/mL (0.00-4.00)
== END 2024-05-16 07:53 | disposition home or self-care (01) ==
LOC: HO.HMGCLDS 07:52
PROVIDERS: PCP Internal Medicine; Visit Provider Internal Medicine
DX: Z00.00 Encounter for general adult medical examination without abnormal findings (principal); I10 Essential (primary) hypertension; Z12.5 Encounter for screening for malignant neoplasm of prostate
CPT/HCPCS: 36415; 80053; 80061; 81001; 84153; 85025

== ENCOUNTER 2024-12-23 13:43 | Outpatient (AMB) | payer OTHER, SELFPAY ==
--- NOTE | 2024-12-23 13:46 | MHC.PC.OV ---
Vital Signs 12/23/24 13:47 Height 5 ft 4 in Weight 183 lb BMI 31.4 BP 136/84 Blood Pressure Location Lt brachial Position Sitting Respiration 18 Pulse 73 Pulse Source Pulse Oximeter Temp 98.3 F Temp Source Oral Pulse Oximetry (%) 96 Oxygen Delivery Method Room Air Intake Visit Reasons: 6mo Follow up Intake Note: Pt is here today for 6 months follow up visit. Allergies iodine Allergy (Unknown, Verified 12/23/24 13:47) anaphylaxis Iodine and Iodide Containing Produc (IODINE AND IODIDE CONTAINING PRODUC) Allergy (Unknown, Unverified 12/23/24 13:47) ANAPHYLAXIS omeprazole (OMEPRAZOLE) Allergy (Unknown, Verified 12/23/24 13:47) ITCHING Iodine Tincture Allergy (Unknown, Uncoded 12/23/24 13:47) Anaphylaxis Medication List - Last Reconciled 12/23/24 by Belinda Guidry MD amlodipine-olmesartan 5-20 mg 1 tab PO DAILY esomeprazole magnesium (Nexium) 20 mg PO DAILY Tobacco use date assessed: 12/23/24 Dental Screening Dental Screen Date: 12/23/24 Did you have a dental visit in the last 12 months?: Yes Did you have a dental problem in the last 6 months where you did not have access to dental care?: No Was dental information given to patient?: Patient has dentist HPI 6mo Follow up HPI Details Pt presents for f/u HTN, stable on meds. 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 1. Little interest or pleasure in doing things: not at all 2. Feeling down, depressed, or hopeless: not at all 3. Trouble falling or staying asleep, or sleeping too much: not at all 4. Feeling tired or having little energy: not at all 5. Poor appetite or overeating: not at all 6. Feeling bad about yourself - or that you are a failure or have let yourself or your family down: not at all 7. Trouble concentrating on things, such as reading the newspaper or watching television: not at all 8. Moving or speaking so slowly that other people could have noticed. Or the opposite - being so fidgety or restless that you have been moving around a lot more than usual: not at all 9. Thoughts that you would be better off or of hurting yourself in some way: not at all Total score: 0 Depression Screening Interpretation: Negative Depression Screening Done: Yes 44324 - PHQ-9 Billing: Yes Source: Developed by Drs. Sukh Pacheco, Kenna Garcia, Pastor Marshall and colleagues, with an educational lance from [employer]. Thrive Questionnaire Date Thrive assessed: 12/23/24 I am a: Patient What is your living situation today?: I have a steady place to live Within the past 12 months, did the food you bought not last and you didn't have the money to get more?: Never true Within the past 12 months, did you worry whether your food would run out before you got money to buy more?: Never true Do you have trouble paying for medicines?: No Do you have trouble getting transportation to medical appointments?: No Do you have trouble paying your heating and electricity bill?: No Do you have trouble taking care of your child, family member or friend?: No Do you have trouble with day-to-day activities such as bathing, preparing meals, shopping, managing finances, etc.?: No Are you currently unemployed and looking for a job?: No Are you interested in more education?: I choose not to answer this question Please select the resources that you would like help with: None Currently or been in a relationship where the following occur: No concerns reported THRIVE Score: 0 AUDIT C Alcohol Use Questionnaire (AUDIT-C) 1. How often do you have a drink containing alcohol?: Monthly or less 2. How many drinks containing alcohol do you have on a typical day when you are drinking?: 1 or 2 3. How often do you have six or more drinks on one occasion?: Never Total Score: 1 MIKHAIL-7 AMB Questionnaire MIKHAIL-7 Date MIKHAIL - 7 assessed: 12/23/24 Feeling nervous, anxious, or on edge: 0 = Not at all Not being able to stop or control worryin = Not at all Worrying too much about different things: 0 = Not at all Trouble relaxin = Not at all Being so restless that it is hard to sit still: 0 = Not at all Becoming easily annoyed or irritable: 0 = Not at all Feeling afraid as if something awful might happen: 0 = Not at all Total MIKHAIL-7 score (0-4 normal; 5-9 mild; 10-14 moderate; 15-21 severe): 0 Source: Developed by Drs. Sukh Pacheco, Kenna Garcia, Pastor Marshall and colleagues, with an educational lance from [employer]. MIKHAIL-7 Assessment Billing MIKHAIL-7 Assessment Tool: MIKHAIL-7 Assessment 76168 Review of Systems Const All systems reviewed & are unremarkable except as noted in HPI and below Eyes Reports no additional complaints ENT Reports no additional complaints Card Reports no additional complaints Resp Reports no additional complaints GI Reports no additional complaints Reports no additional complaints Physical exam (Primary Care) Vital Signs: Last Vital Signs Temp 98.3 F 12/23/24 13:47 Pulse 73 12/23/24 13:47 Resp 18 12/23/24 13:47 BP 136/84 12/23/24 13:47 Pulse Ox 96 12/23/24 13:47 Oxygen Delivery Method Room Air 12/23/24 13:47 BMI result Body Mass Index 31.4 Tobacco/Smoking Status: Tobacco use Status Tobacco use date assessed 12/23/24 12/23/24 13:49 Patient Tobacco Use Status Never used Tobacco 12/23/24 13:49 e-Cigarette/Vaping Use Never Used 12/23/24 13:47 PHQ-9: PHQ-9 Score PHQ-9: Total score 0 12/23/24 13:54 Depression Screening Interpretation: Negative Thrive Assessment: Date of Thrive Assessment Date Thrive assessed 12/23/24 12/23/24 13:54 Currently or been in a relationship where the following occur: No concerns reported Const General: no acute distress HENMT Head: Yes normal to inspection Throat: Yes posterior oropharynx normal Resp Effort & Inspection: normal respiratory effort Auscultation: clear to auscultation bilaterally Cardio Rhythm: regular rhythm Heart sounds: S1 normal heart sound present and S2 normal heart sound present Coding Level of Care Code Est Pt Level 3 (54580) Diagnoses HTN (hypertension) I10 Additional Codes MIKHAIL-7 Assessment Billing - MIKHAIL-7 Assessment Tool: MIKHAIL-7 Assessment 01451 ([id number]) PHQ-9 - 89231 - PHQ-9 Billing: Yes ([id number]) Assessment & Plan Assessment & Plan (1) HTN (hypertension): Code(s): I10 - Essential (primary) hypertension Category: Medical Plan: Continue current medications, increase physical activity low-sodium diet weight loss discussed with the patient. Return for physical in 6 months with a fasting labs before Orders: Orders Comprehensive [place]. Panel Fast 6 Months I10 - Essential (primary) hypertension, Z00.00 - Encounter for general adult medical examination without abnormal findings Complete Blood Count Auto Diff 6 Months I10 - Essential (primary) hypertension, Z00.00 - Encounter for general adult medical examination without abnormal findings Lipid Panel 6 Months I10 - Essential (primary) hypertension, Z00.00 - Encounter for general adult medical examination without abnormal findings UA w Microscopic 6 Months I10 - Essential (primary) hypertension, Z00.00 - Encounter for general adult medical examination without abnormal findings PSA,Total (Free>4and<10) 6 Months I10 - Essential (primary) hypertension, Z00.00 - Encounter for general adult medical examination without abnormal findings
[2024-12-23 13:47] VITALS: BP 136/84; PULSE 73; RESP 18; TEMP 36.8; O2SAT 96; BMI 31.4
--- OUTSIDE RECORDS SUMMARY | 2024-12-23 14:53 | XMS_ITS | Patient Health Record ---
[facility] Address [address] [place] [address] Care Team Providers Care Wooden Tank Erector Name Role Phone Belinda Guidry MD Primary Care Provider Unavaila ble Black, Sera Unavailable [phone] Reason For Referral No Information Immunizations Vaccine Route Administration Date Status Comme nts COVID-19 Pfizer BioNTech Vaccine Unknown 09/25/2020 Administered 1st shot 021 Social History Tobacco Use: Social History Observation Description Date Details (start date - stop date) Never Smoker NA - NA Tobacco Use/Smoking Question Answer Notes Are you a: nonsmoker Problems Problem Type SNOMED Code ICD Code Onset Dates Problem Status W/U Status Risk Notes Problem Acquired hammer toe of right foot ([id number]) Other hammer toe(s) (acquired), right foot (M20.41) Active confirmed Problem Acquired hammer toe of left foot ([id number] 72414) Other hammer toe(s) (acquired), left foot (M20.42) Active confirmed Problem Acquired hallux valgus (62462053) 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 confirmed Problem Acquired hallux valgus (07907975) Acquired hallux interphalangeus of right foot (M20.11) Active confirmed Plan Of Treatment Pending Test Test Name Order Date 05425 I&D ABSCESS- SIMPLE,SINGLE 021 Insurance Providers Payer Name Payer Address Payer Phone Subscriber Number Group Number Insured Name Patient Relationship to Insured Coverage Start Date Coverage End Date [employer] ([employer]) [address] [place] [id number] Maik Guzman Self - patient is the insured Medical (General) History Medical History History ICD Code Reflux ( GERD) Chicken pox Surgical History Surgery Date(Month/Year) Rt knee surgery 05/2003 Left knee surgery 03/2007 Rt knee surgery 07/2016
--- OUTSIDE RECORDS SUMMARY | 2024-12-23 14:53 | XMS_ITS | Data Portability ---
Author Organization [facility] Address [address] [place] [address] Assessment No assessment recorded. Plan of Treatment Reminders Order Date Submit Date Provider Last Modified By Organization Details Last Modified Time Details Appointments None recorded. Lab rapid strep group A, throat 2022 023 [id number] [facility], [address] [place] [address], [phone], 3 13:19:59 rapid flu (A+B) 2022 023 [facility], [address] [place] [address], [phone], 3 13:20:00 SARS CoV 2 (COVID-19) Ag, QL, IA, upper respiratory specimen 2022 023 [id number] [facility], [address] [place] [address], [phone], 3 13:19:57 Referral None recorded. Procedures None recorded. Surgeries None recorded. Imaging None recorded. Medication Orders None recorded. Patient TargetsNo targets recorded. Patient Instructions Encounter Date Encounter Id Patient Instructions Last Modified By Organization Details Last Modified Time 12/29/2022 [id number] coronavirus (covid-19): care instructions [email or web address] Not available 12/29/2022 13:25:31 You have been Diagnosed with COVID - your Rapid COVID test was positive. I recommend the following to help with your symptoms of this viral infection: 1. Take Ibuprofen or Tylenol if you do not have any allergies to these medications. If you take a blood thinner you should not take NSAIDS like Ibuprofen. These medication will help with the inflammation in your respiratory tract which should help the cough. 2. I suggest taking a Antihistamine (loratadine or cetirizine or Tonya or benadryl) - to help with the congestion. I would advise this over a decongestant. 3. Saline Nasal Emelle 4. Salt Water Gargles. I would be seen again immediately in the Emergency Room if you develop: 1. Shortness of Breath 2. Chest Pain 3. Fever > 101.0 4. Lethargy or Confusion. You should notify you PCP that you have been diagnosed with this infection. Below is the current CDC guidelines. Updated CDC Guidelines for Quarantine and Testing - 07/02/2021 If You Test Positive for COVID-19 (Isolate) Everyone, regardless of vaccination status. 1. Stay home for 5 days. 2. If you have no symptoms or your symptoms are resolving after 5 days, you can leave your house. 3. Continue to wear a mask around others for 5 additional days. If you have a fever or feel worse, continue to stay home until your fever resolves. If You Were Exposed to Someone with COVID-19 (Quarantine) If you: Have been boosted OR Completed the primary series of Pfizer or Moderna vaccine within the last 6 months. OR Completed the primary series of J&J vaccine within the last 2 months 1. Wear a mask around others for 10 days. 2. Test on day 5, if possible. 3. If you develop symptoms get a test and stay home. If you: Completed the primary series of Pfizer or Moderna vaccine over 6 months ago and are not boosted OR Completed the primary series of J&J over 2 months ago and are not boosted OR Are un-vaccinated 1. Stay home for 5 days. After that continue to wear a mask around others for 5 additional days. 2. Test on day 5, if possible. If you develop symptoms get a test and stay home Quarantine Calculation: Day 0: is the first day of symptoms or a positive viral test. Day 1: is the first full day after your symptoms developed or when your test specimen was collected. Exposure: Day 1: is the first full day after your last known contact with a person that tested positive for COVID 19. [facility] Thank you for visiting [facility] today, please feel free to call our office you have any questions or concerns. Not available 12/29/2022 13:19:56 Reason for Referral None Reported. Results Created Date Observation Date Name Description Value Unit Range Abnormal Flag Note LastModifiedBy Organization Detail LastModifiedTime 12/30/19 23 12/29/2022 SARS CoV 2 (COVI D-19) Ag, QL, IA, upper respi rator y speci men Unknown Analyte Normal = Negati ve Not Available [address] [place] [address], [phone], 12/29/2022 12:51:22 12/30/19 23 12/29/2022 SARS CoV 2 (COVI D-19) Ag, QL, IA, upper respi rator y speci men Unknown Analyte positi ve Not Available [address] [place] [address], [phone], 12/29/2022 12:51:22 12/30/19 23 12/29/2022 rapid flu (A+B) Unknown Analyte Normal = Negati ve Not Available [address] [place] [address], [phone], 12/29/2022 12:51:15 12/30/19 23 12/29/2022 rapid flu (A+B) Unknown Analyte Normal = Negati ve Not Available [address] [place] [address], [phone], 12/29/2022 12:51:15 12/30/19 23 12/29/2022 rapid flu (A+B) Unknown Analyte negati ve Not Available [address], [place], [address], 12/29/2022 12:51:15 12/30/1912/29/2022 rapid flu (A+B) Unknown Analyte negati ve Not Available [address] [place], [place] [address], [phone], 12/29/2022 12:51:15 12/30/19 23 12/29/2022 rapid strep group A, throa t Unknown Analyte Normal = Negati ve Not Available [address] [place] [address], [place], [phone], 12/29/2022 12:51:08 12/30/1912/29/2022 rapid strep group A, throa t Unknown Analyte negati ve Not Available [address] [place] [address], [place], [phone], 12/29/2022 12:51:08 Result Notes None recorded. Problems Name Problem SNOMED Code Status Onset Date Resolution Date Notes Provider Name and Address Organization Details Recorded Time Hypertensive disorder 00792272 Active 2022 WILL Phelps [facility] 12:50:42 Problem Notes None recorded. Medical Equipment None Reported. Allergies No known drug allergies Medications Name Sig Start Date Stop Date Status Note LastModified by Organization Details LastModified Time losartan active Not Available Not Avai lable Not Available Vitals Date Recorded Oxygen saturation Oxygen saturation in Arterial blood by Pulse oximetry Provider Name and Address Organization Details Last Updated DateTime 12/29/2022 98 % 98 % WILL HULL [address] [place], [address], [place] - [facility] 12/29/2022 13:28:30 Date Recorded Body height Body mass index (BMI) Body weight Respiratory rate Oxygen saturation Oxygen saturation in Arterial blood by Pulse oximetry Heart rate Body temperature Systolic blood pressure Diastolic blood pressure Provider Name and Address Organization Details Last Updated DateTime 162.56 cm 30 kg/m2 18566.6 6 g 20 /min 95 % 95 % 76 /min 98.2 [degF] 133 mm[Hg] 91 mm[Hg] Radha Piedmont [place] - [facility] 12:52:45 Social History Question Answer Notes LastModified by [email or web address] Details LastModified Time Tobacco Smoking Status Never Smoker Radha Grace null, [place] - [facility] 12/29/2022 12:50:52 Have You Had Direct Contact, Or Contact During Intimacy, With Monkeypox Rash, Scabs, Or Body Fluids From A Person With Monkeypox? No Information not available 12/29/2022 Have You Recently Traveled Abroad? No Information not available 12/29/2022 Sex: Unknown Functional Status Question Answer Note LastModified by Organizat ion Details LastModified Time Do you use any illicit or recreational drugs? No Information not available 12/29/2022 Do you or have you ever used any other forms of tobacco or nicotine? No Information not available 12/29/2022 What is your level of alcohol consumption? None Information not available 12/29/2022 Mental Status None recorded. Family History Relationship Description Onset Age of this Age Resolved Age Notes LastModified by Organization Details LastModified Time Father No current problems or disability Not available 12/29 12:50:45 Mother No current problems or disability Not available 12/29 12:50:45 Medical History No medical history recorded. Immunizations Vaccine Type Date Status Note Provider Nam e and Address Organization Details Recorded Time COVID-19, mRNA, LNP-S, PF, 30 mcg/0.3 mL dose 09/04/2020 completed Radha Grace null, [place] - [facility] 12/29/2022 12:49:56 COVID-19, mRNA, LNP-S, PF, 30 mcg/0.3 mL dose 09/25/2020 completed Radha Grace null, [place] - [facility] 12/29/2022 12:49:56 Past Encounters Encounter ID Performer Location Encounter Start Date Encounter Closed Date Diagnosis/Indication Diagnosis SNOMED-CT Code Diagnosis ICD10 Code Diagnosis Note [id number] [facility] [address] [place] [address] 10/26/2016 10:41:47 10/26/2016 11:25:50 [id number] [facility] [address] [place] [address] 02/16/2017 09:26:59 02/16/2017 10:06:56 [id number] [facility] [address] [place] [address] 04/24/2018 11:46:01 04/24/2018 12:19:05 [id number] [facility] [address] [place] [address] 12/19/2016 13:40:32 12/19/2016 14:50:18 [id number] [facility] [address] [place] [address] 06/15/2016 15:13:09 06/15/2016 17:03:04 [id number] [facility] [address] [place] [address] 09/25/2019 08:06:24 09/25/2019 08:57:09 [id number] [facility] [address] [place] [address] 06/11/2018 10:49:33 06/11/2018 11:26:53 [id number] WILL HULL [address] [place] [address] 12/29/2022 12:35:24 12/29/2022 13:26:53 COVID-19 588704254 U07.1 Hypertensive disorder 38 916408 I10 mild elevation - patient does have COVID Health Concerns Section Related Observation LastModified by Organization Detai ls LastModified Time None Recorded Concern Status LastModified by Organization Details LastModified Time None Recorded Advance Directives Directive None Recorded Payers Insurance Date Sequence Insurance Name Policy Number Policy Magallon Covered Member ID Magallon Member ID Guarantor Name 12/29/2022 1 [facility] [id number] Maik Guzman [id number] Maik Guzman Notes Date Note Type Note Provider Name and Address Organization Details Recorded Time 3 text/html CoughReported bypatient.source of patient informationInformation obtained from patient; Patient arrived at Urgent Care ambulatory Severity:mild Duration:3 days Timing:sudden Context:non-smoker Associated Symptoms:no chest pain; no heartburn; no nausea; no vomiting; no wheezing;fever;chills;post nasal dripNotes:Started with a severe sore throat on Sunday. now congestion and cough. Didn't have any home COVID tests. 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 Denies SOB or wheezing. Has had COVID in the past. Fully vaccinated. No underlying conditions. WILL HULL [address] [place], [address], [place] - [facility] 12/29/2022 13:29:33
== END 2024-12-23 14:30 | disposition home or self-care (01) ==
LOC: HO.HMCC 13:43
PROVIDERS: PCP Internal Medicine; Visit Provider Internal Medicine
DX: I10 Essential (primary) hypertension (principal)

== ENCOUNTER → 2024-12-23 13:43 | Outpatient (BNVA) | payer OTHER, SELFPAY | PROVIDERS: PCP Internal Medicine; Visit Provider Internal Medicine | DX: I10 Essential (primary) hypertension (principal) | CPT/HCPCS: 96127 ==

== ENCOUNTER 2025-05-27 08:32 | Outpatient (REF) | payer OTHER, SELFPAY ==
--- OUTSIDE RECORDS SUMMARY | 2025-05-27 09:53 | XMS_ITS | Clinical Summary ---
Author Organization [facility] Address [address] [place] [address] Phone Care Team Providers Care File Conversion Operator Name Role Phone Unavailable Primary Care Provider Unavailabl e Social History Tobacco Use Types Packs/Day Years Used Date Smoking Tobacco: Never Assessed Sex and Gender Information Value Date Recorded Sex Assigned at Not on file Legal Sex Male 11:10 AM EDT Gender Identity Not on file Sexual Orientation Not on file Plan of Treatment Health Maintenance Due Date Last Done Comments Diabetes Screening 1968 HIV Lifetime Screening 1968 Hepatitis B Lifetime Screening 1968 Hepatitis C Antibody Lifetim e Screening 1968 LIPID PANEL 1968 THRIVE SCREENING 1968 Oral Health Screen 1968 HEIP Disability Screen 1973 BEHAVIORAL HEALTH SCREEN 1980 Psych Substance Use Screen 1980 DTAP/TDAP VACCINE (1 - Tdap) 1987 Pneumonia Vaccine 50+ (1 of 1 - PCV) 2018 Zoster Vaccine (1 of 2) 2018 COVID-19 Vaccine (1 - 2024-2 6 season) 2025 INFLUENZA VACCINE (#1) 2025 Colorectal Cancer Screening Completed HPV VACCINES Aged Out No longer eligi ble based on patient's age to complete this topic IPV VACCINES Aged Out No longer eligi ble based on patient's age to complete this topic MENINGOCOCCAL B Aged Out No longer el igible based on patient's age to complete this topic ROTAVIRUS VACCINES Aged Out No longer eligible based on patient's age to complete this topic
--- OUTSIDE RECORDS SUMMARY | 2025-05-27 09:53 | XMS_ITS | Encounter Summary ---
Author Organization [facility] Address [address] [place] [address] Phone Care Team Providers Care Boilermaker Mechanic Name Role Phone Unavailable Primary Care Provider Unavailabl e Encounter Details Date Type Department Care Team (Late st Contact Info) Description 04[facility]13[facility]2016 [facility] [address] [place] [phone] Kobe Koenig MD Social History Tobacco Use Types Packs/Day Years Used Date Smoking Tobacco: Never Assessed Sex and Gender Information Value Date Recorded Sex Assigned at Not on file Legal Sex Male 11:10 AM EDT Gender Identity Not on file Sexual Orientation Not on file documented as of this encounter Plan of Treatment Not on file documented as of this encounter Visit Diagnoses Not on filedocumented in this encounter
[2025-05-27 10:29] LABS: MANUAL DIFF FLAG NO
[2025-05-27 10:34] LABS: Hematocrit 44.0 % (42.0-52.0); Hemoglobin 15.3 g/dl (14.0-18.0); Imm Gran Abs Auto 0.02 X10*3/uL (0.00-0.03); Imm Gran Pct Auto 0.2 % (0.0-0.4); Lymphocytes Absolute Auto 2.1 X10*3/uL (1.2-4.9); Mean Corpuscular HGB Conc 34.8 g/dl (31.0-36.0); Mean Corpuscular Hemoglobin 30.0 pg (27.0-33.0); Mean Corpuscular Volume 86.3 fL (80.0-98.0); NRBC Abs Auto 0.000 X10*3/uL (0.0-0.012); NRBC Pct Auto 0.0 /100WBC (0.0-0.2); Platelet Count 341 X10*3/uL (160-400); Red Blood Count 5.10 X10*6/uL (4.60-5.80); White Blood Count 8.7 X10*3/uL (4.8-10.8)
[2025-05-27 10:51] LABS: Appearance Urine Turbid; Glucose Urine UA Negative (Negative); PH 5.5 (5.0-9.0); Specific Gravity - Urine 1.025 (1.005-1.025); UMIC TRIGGER UA YES
[2025-05-27 11:13] LABS: Alanine Aminotransferase 52 U/L (0-40); Albumin Level 4.6 g/dL (3.5-5.0); Alkaline Phosphatase 91 U/L (39-117); Anion Gap 10 (12-20); Aspartate Amino Transferase 28 U/L (5-37); Blood Urea Nitrogen 13 mg/dL (9-16); Calcium 8.9 mg/dL (8.4-10.2); Carbon Dioxide 28 mmol/L (22-29); Chloride 108 mmol/L (96-108); Cholesterol 194 mg/dL (<200); Estimated Glomerular Filt Rate > 60; HDL Cholesterol 40 mg/dL (>40); Potassium 3.8 mmol/L (3.3-5.1); Sodium 142 mmol/L (135-145); Total Protein 7.0 g/dL (6.5-8.0); Triglycerides 104 mg/dL (<150)
[2025-05-27 11:30] LABS: PSA,Total (Free>4and<10) 0.27 ng/mL (0.00-4.00)
== END 2025-05-27 08:33 | disposition home or self-care (01) ==
LOC: HO.HMGCLDS 08:32
PROVIDERS: PCP Internal Medicine; Visit Provider Internal Medicine
DX: I10 Essential (primary) hypertension (principal); Z00.00 Encounter for general adult medical examination without abnormal findings; Z12.5 Encounter for screening for malignant neoplasm of prostate
CPT/HCPCS: 36415; 80053; 80061; 81001; 84153; 85025

== ENCOUNTER 2025-05-27 08:32 | Outpatient (AMB) | payer OTHER, SELFPAY ==
[2025-05-27 08:34] VITALS: BP 122/82; PULSE 65; RESP 17; TEMP 36.7; O2SAT 97; BMI 32.4
--- NOTE | 2025-05-27 08:34 | MHC.PC.OV ---
Vital Signs 05/27/25 08:34 Height 5 ft 4 in Weight 189 lb BMI 32.4 BP 122/82 Blood Pressure Location Lt brachial Position Sitting Respiration 17 Pulse 65 Pulse Source Pulse Oximeter Temp 98.1 F Temp Source Oral Pulse Oximetry (%) 97 Oxygen Delivery Method Room Air Intake Visit Reasons: PE Intake Note: Pt is here today for PE. Allergies iodine Allergy (Unknown, Verified 05/27/25 08:35) anaphylaxis Iodine and Iodide Containing Produc (IODINE AND IODIDE CONTAINING PRODUC) Allergy (Unknown, Unverified 05/27/25 08:35) ANAPHYLAXIS omeprazole (OMEPRAZOLE) Allergy (Unknown, Verified 05/27/25 08:35) ITCHING Iodine Tincture Allergy (Unknown, Uncoded 05/27/25 08:35) Anaphylaxis Medication List - Last Reconciled 05/27/25 by Belinda Guidry MD amlodipine-olmesartan 5-20 mg 1 tab PO DAILY esomeprazole magnesium (Nexium) 20 mg PO DAILY Tobacco use date assessed: 05/27/25 Dental Screening Dental Screen Date: 12/23/24 HPI PE HPI Details Patient presents for physical PFSH Medical History (Updated 05/27/25 @ 11:11 by Belinda Guidry MD) Gastric ulcer Annual physical exam Esophagitis HTN (hypertension) Surgical History (Updated 05/27/25 @ 08:52 by Belinda Guidry MD) Hx of esophagogastroduodenoscopy Hx of colonoscopy History of knee surgery Family History Father Kidney problem Mother Dissection, aorta Hypertension Maternal Grandmother Stroke 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:: , 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 Housing: House Patient Tobacco Use Status: Never used Tobacco e-Cigarette/Vaping Use: Never Used service: Yes Current occupational status: employed Current occupational exposures/hazards: No Cognitive needs: No Hearing needs: No Vision needs: No Questionnaire Thrive Questionnaire Date Thrive assessed: 12/23/24 I am a: Patient What is your living situation today?: I have a steady place to live Within the past 12 months, did the food you bought not last and you didn't have the money to get more?: Never true Within the past 12 months, did you worry whether your food would run out before you got money to buy more?: Never true Do you have trouble paying for medicines?: No Do you have trouble getting transportation to medical appointments?: No Do you have trouble paying your heating and electricity bill?: No Do you have trouble taking care of your child, family member or friend?: No Do you have trouble with day-to-day activities such as bathing, preparing meals, shopping, managing finances, etc.?: No Are you currently unemployed and looking for a job?: No Are you interested in more education?: I choose not to answer this question Please select the resources that you would like help with: None Currently or been in a relationship where the following occur: No concerns reported THRIVE Score: 0 MIKHAIL-7 AMB Questionnaire MIKHAIL-7 Date MIKHAIL - 7 assessed: 12/23/24 Source: Developed by Drs. Sukh Pacheco, Kenna Garcia, Pastor Marshall and colleagues, with an educational lance from [employer]. Review of Systems Const All systems reviewed & are unremarkable except as noted in HPI and below Eyes Reports no additional complaints ENT Reports no additional complaints Card Reports no additional complaints Resp Reports no additional complaints GI Reports no additional complaints Reports no additional complaints Physical exam (Primary Care) Vital Signs: Last Vital Signs Temp 98.1 F 05/27/25 08:34 Pulse 65 05/27/25 08:34 Resp 17 05/27/25 08:34 BP 122/82 05/27/25 08:34 Pulse Ox 97 05/27/25 08:34 Oxygen Delivery Method Room Air 05/27/25 08:34 BMI result Body Mass Index 32.4 Tobacco/Smoking Status: Tobacco use Status Tobacco use date assessed 05/27/25 05/27/25 08:42 Patient Tobacco Use Status Never used Tobacco 05/27/25 08:42 e-Cigarette/Vaping Use Never Used 05/27/25 08:35 Thrive Assessment: Date of Thrive Assessment Date Thrive assessed 12/23/24 05/27/25 08:35 Currently or been in a relationship where the following occur: No concerns reported Const General: no acute distress HENMT Head: Yes normal to inspection Ears: TM's normal bilaterally Face and sinus: Yes normal facial exam Throat: Yes posterior oropharynx normal Eyes General: appearance normal, both eyes and all related structures Neck Neck: Yes no lymphadenopathy and Yes supple Resp Effort & Inspection: normal respiratory effort Auscultation: clear to auscultation bilaterally Cardio Rhythm: regular rhythm Heart sounds: S1 normal heart sound present and S2 normal heart sound present GI Inspection: Yes normal to inspection Palpation (GI): Soft to palpation Percussion: Yes normal to percussion Auscultation: normal bowel sounds Coding Level of Care Code Est Pt Prev Care 40-64y(91839) Diagnoses Hx of esophagogastroduodenoscopy Z98.890 Annual physical exam Z00.00 HTN (hypertension) I10 Assessment & Plan Assessment & Plan (1) Hx of esophagogastroduodenoscopy: Comment: 08/2018 , gastric ulcer, H pylori +, eosinophilic esophagitis,Dr. Fidencio Landry Code(s): Z98.890 - Other specified postprocedural states Category: Surgical Plan: Continue PPI follow-up with GI (2) Annual physical exam: Comment: Negative colonoscopy 2018 Code(s): Z00.00 - Encounter for general adult medical examination without abnormal findings Category: Medical Plan: Well-balanced diet regular physical activity discussed with the patient. Patient had negative colonoscopy in 2019. He will have a fasting blood work today. He will return in 1 year for physical with fasting labs before (3) HTN (hypertension): Code(s): I10 - Essential (primary) hypertension Category: Medical Plan: Continue current medications Orders: Orders Complete Blood Count Auto Diff Today I10 - Essential (primary) hypertension, Z00.00 - Encounter for general adult medical examination without abnormal findings PSA,Total (Free>4and<10) 1 Year I10 - Essential (primary) hypertension, Z00.00 - Encounter for general adult medical examination without abnormal findings Comprehensive Currie. Panel Fast Today I10 - Essential (primary) hypertension, Z00.00 - Encounter for general adult medical examination without abnormal findings Lipid Panel Today I10 - Essential (primary) hypertension, Z00.00 - Encounter for general adult medical examination without abnormal findings PSA,Total (Free>4and<10) Today I10 - Essential (primary) hypertension, Z00.00 - Encounter for general adult medical examination without abnormal findings UA w Microscopic Today I10 - Essential (primary) hypertension, Z00.00 - Encounter for general adult medical examination without abnormal findings Comprehensive Currie. Panel Fast 1 Year I10 - Essential (primary) hypertension, Z00.00 - Encounter for general adult medical examination without abnormal findings Complete Blood Count Auto Diff 1 Year I10 - Essential (primary) hypertension, Z00.00 - Encounter for general adult medical examination without abnormal findings Lipid Panel 1 Year I10 - Essential (primary) hypertension, Z00.00 - Encounter for general adult medical examination without abnormal findings UA w Microscopic 1 Year I10 - Essential (primary) hypertension, Z00.00 - Encounter for general adult medical examination without abnormal findings Referrals Gastroenterology Referral K25.9 - Gastric ulcer, unspecified as acute or chronic, without hemorrhage or perforation, Z98.890 - Other specified postprocedural states Medications: Refilled amlodipine-olmesartan 5-20 mg 1 tab PO DAILY 90 tabs 3RF
--- OUTSIDE RECORDS SUMMARY | 2025-05-27 08:43 | XMS_ITS | Encounter Summary ---
Author Organization [facility] Address [address] [facility] [address] [place] [address] Phone Care Team Providers Care Photonic Laboratory Technician Name Role Phone Belinda Guidry MD Primary Care Provider [phone] Encounter Details Date Type Department Care Team (Late st Contact Info) Description 05/21/2017 Ancillary Orders [facility] Medicine [address] [place] [address] Azalia Barboza MD [address] [place] [address] Orthopedics & Sports Medicine, [place] [address] [email or web address] Social History Tobacco Use Types Packs/Day Years Used Date Smoking Tobacco: Never Smokeless Tobacco: Never Alcohol Use Standard Drinks/Week Comments Yes 0 (1 standard drink = 0.6 oz pur e alcohol) Sex and Gender Information Value Date Recorded Sex Assigned at Male 02/12/2025 5:35 AM EDT Legal Sex Male 5:54 PM EST Gender Identity Male 02/12/2025 5:35 AM EDT Sexual Orientation Straight 02/12/2025 5: 35 AM EDT documented as of this encounter Plan of Treatment Not on file documented as of this encounter Visit Diagnoses Not on filedocumented in this encounter Care Teams Photonic Laboratory Technician Relationship Specialty Start Date End Date Belinda Guidry MD [facility] [place] [address] PCP - General Internal Medicine 04/27/17 documented as of this encounter Additional Source Comments The information contained in this document represents components of the legal health record. It is not the complete legal health record.[facility]
--- OUTSIDE RECORDS SUMMARY | 2025-05-27 08:43 | XMS_ITS | Encounter Summary ---
Author Organization [facility] Address [address] [place] [address] [place] [address] Phone Care Team Providers Care Physician Coding Specialist Name Role Phone Belinda Guidry MD Primary Care Provider [phone] Encounter Details Date Type Department Care Team (Late st Contact Info) Description 05/21/2017 Ancillary Orders [facility] Orthopedics & Sports Medicine [address] [place] [address] Azalia Barboza MD [address] [place] [address] Orthopedics & Sports Medicine, [place] [address] [email or web address] Right elbow pain Social History Tobacco Use Types Packs/Day Years [...] on file documented as of this encounter Results * XR ELBOW 3 OR MORE VIEWS (RIGHT) (05/21/2017 9:58 AM EST) Narrative Kait Johnston - 05/21/2017 9:59 AM EST This image report has been auto-finalized and has not been read by a Radiologist. Interpretation has been included in the provider encounter note for this date of service. us Azalia Barboza MD IMG XR UPPER EXTREMITY Final Result documented in this encounter Visit Diagnoses Diagnosis Right elbow pain Pain in joint, upper arm Right elbow pain Pain in joint, upper arm documented in this encounter Care Teams Physician Coding Specialist Relationship Specialty Start Date End Date Belinda Guidry [place] [address] PCP - General Internal Medicine 04/27/17 documented as of this encounter Additional Source Comments The information contained in this document represents components of the legal health record. It is not the complete legal health record.[facility]
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
== END 2025-05-27 11:14 | disposition home or self-care (01) ==
LOC: HO.HMCC 08:33
PROVIDERS: PCP Internal Medicine; Visit Provider Internal Medicine
DX: Z00.00 Encounter for general adult medical examination without abnormal findings (principal); I10 Essential (primary) hypertension; Z98.890 Other specified postprocedural states